=== PATIENT | male | born 1955 | race Two or more races ===

== ENCOUNTER 2021-12-11 07:02 | Day surgery (SDC) | payer OTHER ==
[~2021-12-11] VITALS: Ht 157.5 cm; Wt 63.5 kg
[2021-12-11] MEDS ORDERED: IODIXANOL 320MG/ML 100ML BTL IV ONE (09:06)
[2021-12-11] MEDS ORDERED: LIDOCAINE 2%HCL (LOCAL ANESTH.) INJ 10ml MDV ONE (09:07)
[2021-12-11] MEDS ORDERED: ANGIOMAX 250 MG VIAL IV ONE (09:11)
[2021-12-11] MEDS ORDERED: HEPARIN SODIUM (PORCINE) 5000 UNITS/ML 1ML VIAL ONE (09:11)
[2021-12-11] MEDS ORDERED: fentaNYL CITRATE 100 MCG/2 ML VL ONE (09:12)
[2021-12-11] MEDS ORDERED: VERAPAMIL 2.5MG/ML INJ 2ML VIAL IV ONE (09:12)
[2021-12-11] MEDS ORDERED: MIDAZOLAM HCL 2MG/2ML 2ml VIAL (1mg/ml) ONE (09:12)
[2021-12-11] MEDS ORDERED: SODIUM CHL 0.9% 0 ML ONE (09:12)
== END 2021-12-11 12:58 | disposition home or self-care (01) ==
LOC: CATH 07:02
PROVIDERS: ATTEND Internal Medicine Cardiovascular Disease
DX: R94.39 Abnormal result of other cardiovascular function study (principal); I25.10 Atherosclerotic heart disease of native coronary artery without angina pectoris; Z20.822 Contact with and (suspected) exposure to COVID-19
CPT/HCPCS: 93458; C1769; C1887; C1894; J1644; J2001; J2250; J3010; Q9967; U0003; 99152; 99153

== ENCOUNTER 2022-08-20 09:16 | Emergency (ER) | payer OTHER, MEDICAID ==
[~2022-08-20] VITALS: Ht 154.9 cm; Wt 66.9 kg
[2022-08-20] MEDS ORDERED: MORPHINE SULFATE 4 MG/ML SYR/VIAL IV ONE (10:00)
[2022-08-20] MEDS ORDERED: ONDANSETRON HCL 4 MG/2 ML VIAL IV ONE (10:00)
[2022-08-20] MEDS ORDERED: SODIUM CHLORIDE 0.9% 1,000 ML IVB ONE (10:00)
[2022-08-20] MEDS ORDERED: KETOROLAC TROMETH 30 MG/ML 1ML VIAL IV ONE (10:00)
[2022-08-20 10:11] LABS: Urine Bacteria NONE SEEN /hpf (None Seen); Urine Blood Negative /uL (Negative); Urine Mucus FEW (None Seen); Urine Specific Gravity 1.022 (1.001-1.035); Urine WBC 1 /hpf (0 - 3)
[2022-08-20 10:37] LABS: Basophils # (auto) 0 10 ^3/uL (0-0.2); Eosinophils # (auto) 0.1 10 ^3/uL (0-0.8); Lymphocytes # (auto) 1.5 10 ^3/uL (0.4-5.4); Monocytes # (auto) 0.2 10 ^3/uL (0-1.3); Neutrophils # (auto) 1.3 10 ^3/uL (1.6-8.6); Nucleated Red Blood Cells % 0.2 %
[2022-08-20 10:42] LABS: Basophils % (auto) 0.9 % (0.0-2.0); Eosinophils % (auto) 3.2 % (0.0-7.0); Hematocrit 42.4 % (41.0-53.0); Hemoglobin 14.3 g/dL (13.5-17.5); Mean Corpuscular Hemoglobin 34.6 pg (28.0-32.0); Mean Corpuscular Hgb Conc. 33.8 g/dL (32.0-36.0); Mean Corpuscular Volume 102.5 fL (80.0-100.0); Monocytes % (auto) 7.4 % (0.0-12.0); Neutrophils % (auto) 41.5 % (37.0-80.0); Red Blood Cells 4.13 10^6/uL (4.5-5.90); Red Cell Distribution Width 13.5 % (11.8-14.3); White Blood Cell 3.1 10^3/uL (4.4-10.8)
[2022-08-20 10:52] LABS: Albumin 4.5 g/dL (3.4-5.0); Calcium 9.1 mg/dL (8.5-10.1); Potassium 4.3 mmol/L (3.5-5.1)
[2022-08-20 10:55] LABS: BUN/Creatinine Ratio 10.7; Bilirubin, Total 1.5 mg/dL (0.2-1.0); Total Protein 7.8 g/dL (6.4-8.2)
[2022-08-20] MEDS ORDERED: TRAM-297 PO (13:00)
[2022-08-20 13:22] VITALS: BP 168/84
== END 2022-08-20 13:45 | disposition home or self-care (01) ==
LOC: ER 09:16
DX: R10.9 Unspecified abdominal pain (principal); D72.819 Decreased white blood cell count, unspecified; F12.10 Cannabis abuse, uncomplicated; E78.5 Hyperlipidemia, unspecified; I10 Essential (primary) hypertension; Z87.442 Personal history of urinary calculi
CPT/HCPCS: 36415; 74176; 80053; 81001; 85025; 96361; 96374; 99285; J1885; J7030

== ENCOUNTER 2023-09-18 07:03 | Emergency (ER) | payer OTHER, MEDICAID ==
[~2023-09-18] VITALS: Ht 154.9 cm; Wt 63.8 kg
[~2023-09-18 07:03] MED LIST: TRAM-297 PO
[2023-09-18 08:10] LABS: Eosinophils # (auto) 0.1 10 ^3/uL (0-0.8); Mean Corpuscular Hgb Conc. 33.2 g/dL (32.0-36.0); Monocytes # (auto) 0.2 10 ^3/uL (0-1.3); Red Blood Cells 4.12 10^6/uL (4.5-5.90); Red Cell Distribution Width 13.2 % (11.8-14.3)
[2023-09-18 08:12] LABS: Basophils # (auto) 0 10 ^3/uL (0-0.2); Basophils % (auto) 0.9 % (0.0-2.0); Eosinophils % (auto) 3.6 % (0.0-7.0); Hematocrit 42.3 % (41.0-53.0); Lymphocytes # (auto) 1.5 10 ^3/uL (0.4-5.4); Lymphocytes % (auto) 41.1 % (10.0-50.0); Mean Corpuscular Hemoglobin 34.1 pg (28.0-32.0); Mean Corpuscular Volume 102.8 fL (80.0-100.0); Monocytes % (auto) 5.8 % (0.0-12.0); Neutrophils # (auto) 1.8 10 ^3/uL (1.6-8.6); Neutrophils % (auto) 48.6 % (37.0-80.0); Nucleated Red Blood Cells % 0.2 %; White Blood Cell 3.8 10^3/uL (4.4-10.8)
[2023-09-18 08:22] LABS: Chloride 111 mmol/L (98-107); Potassium 3.8 mmol/L (3.5-5.1); Sodium 142 mmol/L (136-145)
[2023-09-18 08:23] LABS: Anion Gap 4 (5-15); Carbon Dioxide 27 mmol/L (20-30)
[2023-09-18 08:24] LABS: Calcium 9.6 mg/dL (8.5-10.1)
[2023-09-18 08:28] LABS: BUN/Creatinine Ratio 8.4 (10.0-20.0); Blood Urea Nitrogen 8 mg/dL (9-23); Glucose 100 mg/dL (74-106)
[2023-09-18 08:30] LABS: INR 1.05 (0.9-1.15); Partial Thromboplastin Time 30.4 SEC (24.5-34.5)
[2023-09-18] MEDS ORDERED: HYDR25SU21 PR (08:54)
[2023-09-18 09:04] VITALS: BP 173/79; PULSE 59; RESP 16; TEMP 97.7; O2SAT 99
== END 2023-09-18 09:06 | disposition home or self-care (01) ==
LOC: ER 07:03
DX: K92.2 Gastrointestinal hemorrhage, unspecified (principal); K64.9 Unspecified hemorrhoids; I10 Essential (primary) hypertension; E78.5 Hyperlipidemia, unspecified; F12.10 Cannabis abuse, uncomplicated; Z87.442 Personal history of urinary calculi
CPT/HCPCS: 36415; 74176; 80048; 85025; 85610; 85730

== ENCOUNTER 2025-07-07 11:46 | Inpatient (IN) | payer OTHER, MEDICAID ==
[~2025-07-07] VITALS: Ht 154.9 cm; Wt 77.2 kg
[~2025-07-07 11:46] MED LIST changes: +HYDR25SU21 PR
--- NOTE | 2025-07-07 11:57 | ED.PDOC ---
HPI Comments 69 y.o male with PMHx of HTN and HLD, presents to the ED via EMS for a chief complaint of chest pain that started this morning. Patient initially reported a 3 day history of fever, chills, SOB and cough followed by new onset chest pain which prompt him to visit [facility] urgent care today. Patient tested positive for Covid at the urgent care and was transferred to the ED given 3 elevated troponin counts. Patient received 3 NTG from EMS. No nausea, vomiting, diarrhea reported. Time Seen by MD: 11:40 Primary Care Provider: SEAN Reviewed Notes: Nurses Notes, Loss Prevention Auditor Notes, Medications, Allergies Allergies: Coded Allergies: NO KNOWN ALLERGIES (Unverified , 12/06/21) Home Meds Active Scripts Hydrocortisone Acetate (Anusol-Hc) 25 Mg Sup, 1 SUPP ND BID, #14 SUPP Prov:AIDAN GARCÍA MD 09/18/23 Tramadol Hcl (Ultram) 50 Mg Tab, 1 TAB PO Q6HR, #30 TAB Prov:AIDAN GARCÍA MD 08/20/22 Information Source: Patient, Emergency Med Personnel Mode of Arrival: EMS Severity: Moderate Timing: Hours Duration: Since onset Prehospital treatment: 12 Lead EKG, In Service Educator, NTG Location: Substernal Radiation: No Radiation Quality: Sharp Onset: At Rest Cardiac Risk Factors: Hyperlipidemia, HTN PE Risk Factors: None History of: None Associated Signs and Symptoms: SOB Past Medical History PAST MEDICAL HISTORY: High Lipids, HTN, Kidney Stones Surgical History: Appendectomy Family History Family History: Reviewed,noncontributory to illness Social History Smoker: Non-Smoker Alcohol: Occasionally Drugs: Marijuana Lives In: Home Constitutional: reports: chills, fever; denies: diaphoresis, fatigue, malaise, sweats, weakness, others EENTM: denies: blurred vision, double vision, ear bleeding, ear discharge, ear drainage, ear pain, ear ringing, eye pain, eye redness, hearing loss, mouth pain, mouth swelling, nasal discharge, nose bleeding, nose congestion, nose pain, photophobia, tearing, throat pain, throat swelling, voice changes, others Respiratory: reports: cough, SOB at rest, shortness of breath, SOB with excertion; denies: hemoptysis, orthopnea, stridor, wheezing, others Cardiovascular: reports: chest pain; denies: dizzy spells, diaphoresis, Dyspnea on exertion, edema, irregular heart beat, left arm pain, lightheadedness, palpitations, PND, syncope, others Gastrointestinal: denies: abdomen distended, abdominal pain, blood streaked bowels, constipated, diarrhea, dysphagia, difficulty swallowing, hematemesis, melena, nausea, poor appetite, poor fluid intake, rectal bleeding, rectal pain, vomiting, others Genitourinary: denies: burning, dysuria, flank pain, frequency, hematuria, incontinence, penile discharge, penile sore, pain, testicle pain, testicle swelling, urgency, others Neurological: denies: dizziness, fainting, headache, left sided numbness, left sided weakness, numbness, paresthesia, pre-existing deficit, right sided numbness, right sided weakness, seizure, speech problems, tingling, tremors, weakness, others Musculoskeletal: denies: back pain, gout, joint pain, joint swelling, muscle pain, muscle stiffness, neck pain, others Integumetry: denies: bruises, change in color, change in hair/nails, dryness, laceration, lesions, lumps, rash, wounds, others Allergic/Immunocompromised: denies: Difficulty Healing, Frequent Infections, Hives, Itching, others Hematologic/Lymphatic: denies: anemia, blood clots, easy bleeding, easy bruising, swollen glands, others Endocrine: denies: excessive hunger, excessive sweating, excessive thirst, excessive urination, flushing, intolerance to cold, intolerance to heat, unexplained weight gain, unexplained weight loss, others Psychiatric: denies: anxiety, bipolar disorder, depression, hopeless, panic disorder, schizophrenia, sleepless, suicidal, others All Other Systems: Reviewed and Negative Physical Exam General Appearance: Moderate Distress HEENT: Normal ENT Inspection, Pharynx Normal, TMs Normal Neck: Full Range of Motion, Non-Tender, Normal, Normal Inspection Respiratory: Other (Coarse breath sounds) Cardiovascular: Bradycardia Breast Exam: Deferred Gastrointestinal: No Organomegaly, Non Tender, No Pulsatile Mass, Normal Bowel Sounds, Soft Genitalia: Deferred Pelvic: Deferred Rectal: Deferred Extremities: No calf tenderness, Normal capillary refill, Normal inspection, Normal range of motion, Non-tender, No pedal edema Musculoskeletal : Apperance: Normal Neurologic: Alert, meter attendant II-XII nml as Tested, No Motor Deficits, Normal Affect, Normal Mood, No Sensory Deficits Cerebellar Function: NOT DONE Reflexes: NOT DONE Skin: Dry, Normal Color, Warm Peripheral Pulses: 3+ Radial (R), 3+ Radial (L) Lymphatic: No Adenopathy Was a procedure done? Was a procedure done?: No CP Differential Dx Differential Diagnosis: A-fib, A-Flutter, Angina, Anxiety / Panic Attack, Atrial Dysrhythmia, Electrolyte Disorder, Pulmonary Embolus Differential Diagnosis: Angina, Chest Wall Pain, Cholelithiasis, Costochondritis, Pericarditis, Pneumonia, Pulmonary Embolus X-Ray, Labs, Meds, VS Vital Signs Date Time Temp Pulse Resp B/P (MAP) Pulse Ox O2 Delivery O2 Flow Rate FiO2 07/07/25 14:00 46 20 145/49 (81) 97 07/07/25 13:02 44 07/07/25 13:00 49 16 153/66 (95) 98 07/07/25 12:17 98.2 45 13 140/75 (96) 99 98.2 07/07/25 12:17 45 13 99 Room Air* 0 21 07/07/25 11:46 98.2 52 18 167/87 97 98.2 07/07/25 11:46 51 Lab Test 07/07/25 14:00 07/07/25 13:00 07/07/25 12:51 07/07/25 12:07 Range/Units Urine Color Light-yellow Yellow Urine Clarity Clear Clear Urine pH 5.5 5.0-9.0 Urine Specific [place] 1.024 1.001-1.035 Urine Protein Negative Negative Urine Ketones Negative Negative Urine Blood Negative Negative /uL Urine Nitrite Negative Negative Urine Bilirubin Negative Negative Urine Urobilinogen Normal Negative mg/dL Urine Leukocyte Esterase Negative Negative /uL Urine RBC 1 0 - 3 /hpf Urine Microscopic WBC 1 0-3 /HPF Urine Squamous Epithelial Cells Few <5 /hpf Urine Bacteria None seen None Seen /hpf Urine Mucus Few None Seen Urine Glucose Normal Normal mg/dL Troponin I High Sensitivity 194 *H 205 *H </=54 ng/L Influenza Type A Antigen Negative Negative Influenza Type B Antigen Negative Negative SARS-CoV-2 Antigen (Rapid) Negative NEGATIVE White Blood Count 4.6 4.4-10.8 10^3/uL Red Blood Count 3.99 L 4.5-5.90 10^6/uL Hemoglobin 13.8 13.5-17.5 g/dL Hematocrit 41.0 41.0-53.0 % Mean Corpuscular Volume 102.9 H 80.0-100.0 fL Mean Corpuscular Hemoglobin 34.5 H 28.0-32.0 pg Mean Corpuscular Hemoglobin Concent 33.5 32.0-36.0 g/dL Red Cell Distribution Width 13.7 11.8-14.3 % Platelet Count 205 140-450 10^3/uL Mean Platelet Volume 7.5 6.9-10.8 fL Neutrophils (%) (Auto) 37.8 37.0-80.0 % Lymphocytes (%) (Auto) 51.1 H 10.0-50.0 % Monocytes (%) (Auto) 7.4 0.0-12.0 % Eosinophils (%) (Auto) 3.0 0.0-7.0 % Basophils (%) (Auto) 0.7 0.0-2.0 % Neutrophils # (Auto) 1.7 1.6-8.6 10 ^3/uL Lymphocytes # (Auto) 2.3 0.4-5.4 10 ^3/uL Monocytes # (Auto) 0.3 0-1.3 10 ^3/uL Eosinophils # (Auto) 0.1 0-0.8 10 ^3/uL Basophils # (Auto) 0 0-0.2 10 ^3/uL Nucleated Red Blood Cells 0.2 % Sodium Level 144 136-145 mmol/L Potassium Level 4.6 3.5-5.1 mmol/L Chloride Level 110 H 98-107 mmol/L Carbon Dioxide Level 28 20-31 mmol/L Anion Gap 6 5-15 Blood Urea Nitrogen 11 9-23 mg/dL Creatinine 0.92 0.700-1.30 mg/dL Glomerular Filtration Rate Calc 89 >90 mL/min BUN/Creatinine Ratio 12.0 10.0-20.0 Serum Glucose 98 74-106 mg/dL Calcium Level 9.3 8.7-10.4 mg/dL Current Medications Medications (Trade) Dose Ordered Sig/Debra Route Start Time Stop Time Status Last Admin Sodium Chloride 1,000 ml @ 60 mls/hr [id number] IV 07/07/25 14:15 07/07/25 15:15 Patient alert. Came in because of cough. Vitals stable. Answering questions. Came from urgent care. Was ruled in for COVID. Blood pressure elevated. Troponin elevated. Waiting for [facility] physician. Explained to the patient. Continue monitoring. Time of 1ST Reevaluation: 11:53 Reevaluation 1ST: Unchanged Patient Education/Counseling: Diagnosis, Treatment, Prognosis Family Education/Counseling: No Family Present SEPSIS Sepsis Screen Physician Orders Chest Portable (07/07/25 12:20) Electrocardigram (07/07/25 12:30) Electrocardigram (07/07/25 13:30) Electrocardigram (07/07/25 15:30) Vital Signs Date Time Temp Pulse Resp B/P (MAP) Pulse Ox O2 Delivery O2 Flow Rate FiO2 07/07/25 14:00 46 20 145/49 (81) 97 07/07/25 13:02 44 07/07/25 13:00 49 16 153/66 (95) 98 07/07/25 12:17 98.2 45 13 140/75 (96) 99 98.2 07/07/25 12:17 45 13 99 Room Air* 0 21 07/07/25 11:46 98.2 52 18 167/87 97 98.2 07/07/25 11:46 51 Laboratory Tests Test 07/07/25 12:07 White Blood Count 4.6 10^3/uL (4.4-10.8) Medications Medications Dose Ordered Sig/Debra Route Start Time Stop Time Status Last Admin Dose Admin Sodium Chloride 1,000 ml @ 60 mls/hr [id number] IV 07/07/25 14:15 07/07/25 15:15 Departure 1 Departure Time of Disposition: 12:39 Impression: Primary Impression: Bradycardia Additional Impressions: Pneumonitis Demand ischemia Disposition: 09 ADMITTED INPATIENT Admit to: Med Surg Condition: Guarded Critical Care Note Critical Care Time?: Yes (90 min-critical care time only) Stability Stability form required: No Heart Score Heart Score: Heart Score Response (Comments) Value History Highly Suspicious 2 EKG Normal 0 Age >65 2 Risk Factors >3 or Hx ASHD 2 Troponin >3 x's Normal limit 2 Total 8 I personally scribed for YONAS ALANIS MD ([email or web address]) on 07/07/25 at 11:57. Electronically submitted by Rosalie Mon ([facility]). YONAS ALANIS MD Jul 07, 2025 11:57
[2025-07-07 12:17] VITALS: PULSE 45; RESP 13; O2SAT 99
[2025-07-07 12:30] LABS: Hemoglobin 13.8 g/dL (13.5-17.5); Mean Corpuscular Hemoglobin 34.5 pg (28.0-32.0)
[2025-07-07 12:33] LABS: Hematocrit 41.0 % (41.0-53.0); Mean Corpuscular Volume 102.9 fL (80.0-100.0); Nucleated Red Blood Cells % 0.2 %
[2025-07-07 12:42] LABS: Potassium 4.6 mmol/L (3.5-5.1); Sodium 144 mmol/L (136-145)
[2025-07-07 12:43] LABS: Anion Gap 6 (5-15); Calcium 9.3 mg/dL (8.7-10.4); Carbon Dioxide 28 mmol/L (20-31); Chloride 110 mmol/L (98-107)
[2025-07-07 12:48] LABS: BUN/Creatinine Ratio 12.0 (10.0-20.0); Blood Urea Nitrogen 11 mg/dL (9-23); Glucose 98 mg/dL (74-106)
--- NOTE | 2025-07-07 13:01 | DVH ---
CHEST RADIOGRAPH INDICATION: sob TECHNIQUE: XY CHEST PORTABLE Comparison: None FINDINGS: The cardiac silhouette is unremarkable. The lungs demonstrate no pulmonary airspace consolidation. The pulmonary vasculature is unremarkable. There is no pleural effusion. There is no pneumothorax. IMPRESSION: No pulmonary airspace consolidation.
[2025-07-07] MEDS ORDERED: NITROGLYCERIN 0.4 MG SL TAB SL PRN (14:15)
[2025-07-07] MEDS ORDERED: ACETAMINOPHEN 325 MG TAB PO PRN (14:15)
[2025-07-07 14:21] LABS: COVID19 ANTIGEN SOFIA FIA NEGATIVE (NEGATIVE)
[2025-07-07 14:28] LABS: Urine Protein, UAD Negative (Negative)
[2025-07-07] MEDS ORDERED: MORPHINE SULFATE 4 MG/ML SYR/VIAL IV PRN (14:30)
[2025-07-07] MEDS ORDERED: hydrALAZINE HCL 20 MG/ML VL IV PRN (14:30)
[2025-07-07] MEDS ORDERED: HEPARIN SODIUM (PORCINE) 5000 UNITS/ML 1ML VIAL IV ONE (14:30)
[2025-07-07] MEDS: SODIUM CHLORIDE 0.9% 1,000 ML IV SCH (15:15)
[2025-07-07] MEDS: ATORVASTATIN 20 MG TAB PO ONE (15:15)
[2025-07-07 15:17] LABS: Hemoglobin 13.5 g/dL (13.5-17.5); Mean Corpuscular Hemoglobin 34.3 pg (28.0-32.0)
[2025-07-07 15:18] LABS: Hematocrit 40.4 % (41.0-53.0); Mean Corpuscular Volume 102.9 fL (80.0-100.0); Nucleated Red Blood Cells % 0.2 %
[2025-07-07 15:38] LABS: INR 0.99 (0.9-1.15); Partial Thromboplastin Time 28.2 SEC (24.5-34.5); Prothrombin Time 10.5 sec (9.3-11.8)
[2025-07-07] MEDS: HEPARIN DRIP/D5W 100UNITS/ML 250 ML IV SCH (15:42)
[2025-07-07 17:35] VITALS: BP 154/86; PULSE 43; PULSE 44; RESP 16; TEMP 98; O2SAT 98
--- NOTE | 2025-07-07 17:39 | DVHINCON2 ---
Date Seen: Jul 07, [address] Dietrich Reason for Consultation NSTEMI History of Present Illness Patient is a 69-year-old male presented to the hospital with a chief complaint of chest pain with the last few days. Patient reported started to have chest pain about 3-4 days ago left-sided, sharp, radiating to the left arm with a feeling of cramping up of his hand, brought on at rest, reportedly worsens with the exertion and since the last 3 4 days has been found stent worsens with cough. He also has been having cough with a yellowish expectoration since the last 3-4 days with chills, with the shortness of breath worsened with exertion, Functional Class II, denied orthopnea or PND. Patient has significant medical history of hypertension, hyperlipidemia,? Atrial fibrillation Since he is on Eliquis and metoprolol succinate at home. While in the EMS patient was given nitroglycerin which did not help with the pain. On arrival to the ER patient was noted to be bradycardic with the 40s, BP slightly elevated up to 167/87. Chest pain subsided while in the hospital. Twelve lead ECG showed sinus bradycardia without any acute ST or T-wave changes, troponin levels flat trended [id number] Past medical history: Hypertension, hyperlipidemia, asthma,? Atrial fibrillation Since he is on Eliquis and metoprolol succinate at home Past surgical history: Denies Social history: Patient lives at home, denies any smoking, alcohol, drug use Home medications: Eliquis 2.5 b.i.d., aspirin 81 mg daily, lisinopril 5 mg daily, atorvastatin 40 mg, metoprolol succinate 25 mg, amitriptyline 10 mg t.i.d., albuterol inhaler, gabapentin Allergies: Coded Allergies: NO KNOWN ALLERGIES (Unverified , 12/06/21) Home Meds Active Scripts Hydrocortisone Acetate (Anusol-Hc) 25 Mg Sup, 1 SUPP ID BID, #14 SUPP Prov:AIDAN GARCÍA MD 09/18/23 Tramadol Hcl (Ultram) 50 Mg Tab, 1 TAB PO Q6HR, #30 TAB Prov:AIDAN GARCÍA MD 08/20/22 Current Medications Current Medications Medications (Trade) Dose Ordered Sig/Debra Route PRN Reason Start Time Stop Time Status Last Admin Sodium Chloride 1,000 ml @ 60 mls/hr [id number] IV 07/07/25 14:15 07/07/25 15:15 Acetaminophen (Tylenol Tablet) 325 mg Q4HP PRN PO MILD PAIN (1-3 PAIN SCALE) 07/07/25 14:15 Acetaminophen/ Hydrocodone Bitart ([place] 5/325MG Tab) 1 tab Q4HP PRN PO MODERATE PAIN (4-6 PAIN SCALE) 07/07/25 14:15 Morphine Sulfate 2 mg Q4HPRN PRN IV SEVERE PAIN (7-10 PAIN SCALE) 07/07/25 14:30 Nitroglycerin (Ntrostat Sublingual) 0.4 mg Q5MINP PRN SL FOR CHEST PAIN 07/07/25 14:15 Morphine Sulfate 2 mg Q30M PRN IV FOR CHEST PAIN 07/07/25 14:30 Heparin Sodium/ Dextrose 250 ml @ 9 mls/hr Q24H IV 07/07/25 14:30 07/07/25 15:42 Azithromycin 250 ml @ 125 mls/hr DAILY IV 07/08/25 10:00 Aspirin (Ecotrin Enteric Coated Tablet) 81 mg DAILY PO 07/08/25 10:00 Hydralazine HCl (Apresoline Injection) 10 mg Q6HP PRN IV SBP>160 07/07/25 14:30 Review of Systems Patient seen and examined at bedside, comfortably sitting in bed without any acute distress Describes chest pain 1/10 on intensity, left-sided No shortness a breath Vital Signs Vital Signs Date Time Temp Pulse Resp B/P (MAP) Pulse Ox O2 Delivery O2 Flow Rate FiO2 07/07/25 14:00 46 20 145/49 (81) 97 07/07/25 12:17 98.2 98.2 07/07/25 12:17 Room Air* 0 21 Physical Exam Skin - Patients skin is warm and dry. HEENT - normocephalic, atraumatic, moist mucous membranes, no scleral icterus, no conjunctival pallor. Neck - full ROM, no LAD, no JVD Pulmonary - B/L clear breath sounds without any wheezing, rales or stridor cardiovascular - regular S1,S2 heard, no added sounds, no murmurs appreciable. peripheral pulses normal radial 2+, pedal 2+. GI - soft, nontender abdomen. no hepatospleenomegaly. Bowel sounds normoactive Neurological - Patient is A/O X 4 . Bilateral upper extremity strength 5/5, bilateral lower extremity strength 5/5, no facial droop, normal speech, no tremor, no sensory deficiets. Labs/Diagnostic Data Labs Test 07/07/25 14:58 07/07/25 14:00 07/07/25 12:51 07/07/25 12:07 Range/Units White Blood Count 3.9 L 4.4-10.8 10^3/uL Red Blood Count 3.93 L 4.5-5.90 10^6/uL Hemoglobin 13.5 13.5-17.5 g/dL Hematocrit 40.4 L 41.0-53.0 % Mean Corpuscular Volume 102.9 H 80.0-100.0 fL Mean Corpuscular Hemoglobin 34.3 H 28.0-32.0 pg Mean Corpuscular Hemoglobin Concent 33.3 32.0-36.0 g/dL Red Cell Distribution Width 13.7 11.8-14.3 % Platelet Count 197 140-450 10^3/uL Mean Platelet Volume 7.3 6.9-10.8 fL Neutrophils (%) (Auto) 44.2 37.0-80.0 % Lymphocytes (%) (Auto) 44.7 10.0-50.0 % Monocytes (%) (Auto) 7.3 0.0-12.0 % Eosinophils (%) (Auto) 2.9 0.0-7.0 % Basophils (%) (Auto) 0.9 0.0-2.0 % Neutrophils # (Auto) 1.7 1.6-8.6 10 ^3/uL Lymphocytes # (Auto) 1.8 0.4-5.4 10 ^3/uL Monocytes # (Auto) 0.3 0-1.3 10 ^3/uL Eosinophils # (Auto) 0.1 0-0.8 10 ^3/uL Basophils # (Auto) 0 0-0.2 10 ^3/uL Nucleated Red Blood Cells 0.2 % Prothrombin Time 10.5 9.3-11.8 sec Prothrombin Time INR 0.99 0.9-1.15 Activated Partial Thromboplast Time 28.2 24.5-34.5 SEC Troponin I High Sensitivity 193 *H </=54 ng/L Urine Color Light-yellow Yellow Urine Clarity Clear Clear Urine pH 5.5 5.0-9.0 Urine Specific [place] 1.024 1.001-1.035 Urine Protein Negative Negative Urine Ketones Negative Negative Urine Blood Negative Negative /uL Urine Nitrite Negative Negative Urine Bilirubin Negative Negative Urine Urobilinogen Normal Negative mg/dL Urine Leukocyte Esterase Negative Negative /uL Urine RBC 1 0 - 3 /hpf Urine Microscopic WBC 1 0-3 /HPF Urine Squamous Epithelial Cells Few <5 /hpf Urine Bacteria None seen None Seen /hpf Urine Mucus Few None Seen Urine Glucose Normal Normal mg/dL Influenza Type A Antigen Negative Negative Influenza Type B Antigen Negative Negative SARS-CoV-2 Antigen (Rapid) Negative NEGATIVE Sodium Level 144 136-145 mmol/L Potassium Level 4.6 3.5-5.1 mmol/L Chloride Level 110 H 98-107 mmol/L Carbon Dioxide Level 28 20-31 mmol/L Anion Gap 6 5-15 Blood Urea Nitrogen 11 9-23 mg/dL Creatinine 0.92 0.700-1.30 mg/dL Glomerular Filtration Rate Calc 89 >90 mL/min BUN/Creatinine Ratio 12.0 10.0-20.0 Serum Glucose 98 74-106 mg/dL Calcium Level 9.3 8.7-10.4 mg/dL Assessment Acute chest pain, NSTEMI likely type 2 Sinus bradycardia, symptomatic Hypertension ? Atrial fibrillation on Eliquis Plan/Recommendation - continue heparin drip, single antiplatelet therapy , high-dose statin - keep potassium over 4 and magnesium above 2 - tele monitor for bradycardia - avoid beta blockers - as per Dr. Hicks, patient to be scheduled for left heart catheterization on Thursday with Dr. Reagan, patient's primary senior it architect Goals of care discussed with the patient Plan discussed with Dr. Hicks Plan discussed with: Patient, Other (RN) NYHA Physical activity limitations: Class2(Slight)fatigue,sob Date of Service: Jul 07, 2025 Billing Provider: MASSIEL HICKS MD Cardiology Common Codes: 22028-OTXXTTO INP/OBS CARE (High) OLAF NUNEZ RESIDENT Jul 07, 2025 17:39
[2025-07-07 17:40] VITALS: BP 154/86; PULSE 49; RESP 17; TEMP 98.1; O2SAT 96
--- NOTE | 2025-07-07 19:19 | DVHSR ---
APPROVED REPORT EXAM: Two-dimensional and M-mode echocardiogram with Doppler and color Doppler. Blood Pressure: 140/75 mmHg INDICATION NSTEMI RISK FACTORS Height: 5'1, Weight: 169 DIMENSIONS LVDd 4.3 (3.8-5.7cm) LA (2D) 3.3 (1.9-4.0cm) Aortic Root 3.1 (2.0-3.7cm) LVDs 2.7 (2.5-4.0cm) LA (MM) (1.9-4.0cm) Aortic Cusp Exc 1.8 (1.5-2.0cm) EF (%) 60.0 (55-70%) Rt. Atrium 3.9 (1.9-4.0cm) Asc. Aorta 3.5 cm IVSd 0.8 (0.7-1.1cm) RV (D) 5.5 (1.8-2.4cm) PWd 0.9 (0.7-1.1cm) Mitral Valve Mitral Mitral Stenosis E wave 0.54m/s MV Mean GR. mmHg A wave 0.71m/s MV Peak GR. 56mmHg E/A ratio 0.8 2D MVA cm2 DECEL Time 287ms PRESS 1/2 Time ms Aortic Valve Aortic Valve Aortic Stenosis V1 0.78m/s AO Mean GR. 4mmHg V2 1.27m/s AO Peak GR. 6mmHg LVOT Diameter 2.2 (1.8-2.4cm) Doppler SUKHDEEP 2.33cm2 Pulmonic Valve V2 0.87m/s Tricuspid Valve TR Velocity 2.29m/s RVSP 24mmHg Other Information Quality : Rhythm : Bradycardia Conclusion NORMAL LV EF AND IS 65% NORMAL VALVES NORMAL RV FUNCTION NO EFFUSION
--- NOTE | 2025-07-07 19:25 | ECG ---
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
--- NOTE | 2025-07-07 19:26 | ECG ---
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
[2025-07-07 20:00] VITALS: PULSE 47
--- NOTE | 2025-07-07 20:53 | DVHINCON2 ---
Date Seen: Jul 07, [address] Dietrich Reason for Consultation NSTEMI History of Present Illness This is a 69-year-old male with a PMH of Hypertension, hyperlipidemia, asthma,? Atrial fibrillation since he is on Eliquis and metoprolol succinate at home who presented to the ED with a complaint of chest pain with the last few days. Patient reported started to have chest pain about 3-4 days ago left-sided, sh lee ann, radiating to the left arm with a feeling of cramping up of his hand, brought on at rest, reportedly worsens with the exertion and since the last 3 4 days has been found stent worsens with cough. He also has been having cough with a yellowish expectoration since the last 3-4 days with chills, with the shortness of breath worsened with exertion, Functional Class II, denied ortho pnea or PND. While in the EMS patient was given Nitroglycerin which did not help with the pain. On arrival to the ED the patient was noted to be bradycardic with the 40s, BP slightly elevated up to 167/87. Chest pain subsided while in the hospital. Twelve lead ECG showed sinus bradycardia without any acute ST or T-wave changes, troponin levels flat trended [id number]. Patient was admitted to the hospital. I am asked to consult on this patient. Past Medical History Hypertension, hyperlipidemia, asthma,? Atrial fibrillation Since he is on Eliquis and metoprolol succinate at home Past Surgical History Denies Allergies: Coded Allergies: NO KNOWN ALLERGIES (Unverified , 12/06/21) Home Meds Active Scripts Hydrocortisone Acetate (Anusol-Hc) 25 Mg Sup, 1 SUPP [place] BID, #14 SUPP Prov:AIDAN GARCÍA MD 09/18/23 Tramadol Hcl (Ultram) 50 Mg Tab, 1 TAB PO Q6HR, #30 TAB Prov:AIDAN GARCÍA MD 08/20/22 Current Medications Current Medications Medications (Trade) Dose Ordered Sig/Debra Route PRN Reason Start Time Stop Time Status Last Admin Sodium Chloride 1,000 ml @ 60 mls/hr [id number] IV 07/07/25 14:15 07/07/25 15:15 Acetaminophen (Tylenol Tablet) 325 mg Q4HP PRN PO MILD PAIN (1-3 PAIN SCALE) 07/07/25 14:15 Acetaminophen/ Hydrocodone Bitart (Keno 5/325MG Tab) 1 tab Q4HP PRN PO MODERATE PAIN (4-6 PAIN SCALE) 07/07/25 14:15 Morphine Sulfate 2 mg Q4HPRN PRN IV SEVERE PAIN (7-10 PAIN SCALE) 07/07/25 14:30 Nitroglycerin (Ntrostat Sublingual) 0.4 mg Q5MINP PRN SL FOR CHEST PAIN 07/07/25 14:15 Morphine Sulfate 2 mg Q30M PRN IV FOR CHEST PAIN 07/07/25 14:30 Heparin Sodium/ Dextrose 250 ml @ 9 mls/hr Q24H IV 07/07/25 14:30 07/07/25 15:42 Azithromycin 250 ml @ 125 mls/hr DAILY IV 07/08/25 10:00 Aspirin (Ecotrin Enteric Coated Tablet) 81 mg DAILY PO 07/08/25 10:00 Hydralazine HCl (Apresoline Injection) 10 mg Q6HP PRN IV SBP>160 07/07/25 14:30 Atorvastatin Calcium (Lipitor) 40 mg HS PO 07/08/25 22:00 Lisinopril (Zestril Tablet) 5 mg DAILY PO 07/08/25 10:00 Review of Systems Constitutional: reports: chills, fever; denies: diaphoresis, fatigue, malaise, sweats, weakness, others EENTM: denies: blurred vision, double vision, ear bleeding, ear discharge, ear drainage, ear pain, ear ringing, eye pain, eye redness, hearing loss, mouth pain, mouth swelling, nasal discharge, nose bleeding, nose congestion, nose pain, photophobia, tearing, throat pain, throat swelling, voice changes, others Respiratory: reports: cough, SOB at rest, shortness of breath, SOB with excertion; denies: hemoptysis, orthopnea, stridor, wheezing, others Cardiovascular: reports: chest pain; denies: dizzy spells, diaphoresis, Dyspnea on exertion, edema, irregular heart beat, left arm pain, lightheadedness, palpitations, PND, syncope, others Gastrointestinal: denies: abdomen distended, abdominal pain, blood streaked bowels, constipated, diarrhea, dysphagia, difficulty swallowing, hematemesis, melena, nausea, poor appetite, poor fluid intake, rectal bleeding, rectal pain, vomiting, others Genitourinary: denies: burning, dysuria, flank pain, frequency, hematuria, incontinence, penile discharge, penile sore, pain, testicle pain, testicle swelling, urgency, others Neurological: denies: dizziness, fainting, headache, left sided numbness, left sided weakness, numbness, paresthesia, pre-existing deficit, right sided numbness, right sided weakness, seizure, speech problems, tingling, tremors, weakness, others Musculoskeletal: denies: back pain, gout, joint pain, joint swelling, muscle pain, muscle stiffness, neck pain, others Integumetry: denies: bruises, change in color, change in hair/nails, dryness, laceration, lesions, lumps, rash, wounds, others Allergic/Immunocompromised: denies: Difficulty Healing, Frequent Infections, Hi ves, Itching, others Hematologic/Lymphatic: denies: anemia, blood clots, easy bleeding, easy bruising, swollen glands, others Endocrine: denies: excessive hunger, excessive sweating, excessive thirst, excessive urination, flushing, intolerance to cold, intolerance to heat, unexplained weight gain, unexplained weight loss, others Psychiatric: denies: anxiety, bipolar disorder, depression, hopeless, panic disorder, schizophrenia, sleepless, suicidal, others All Other Systems: Reviewed and Negative Vital Signs Vital Signs Date Time Temp Pulse Resp B/P (MAP) Pulse Ox O2 Delivery O2 Flow Rate FiO2 07/07/25 17:40 98.1 49 17 154/86 (108) 96 98.1 07/07/25 12:17 Room Air* 0 21 Physical Exam GENERAL: Alert and oriented x 3. No acute distress. EYES: PERRL, EOMI. Anicteric. HENT: Moist mucous membranes. LUNGS: Clear to auscultation bilaterally. CARDIOVASCULAR: Regular rate and rhythm. ABDOMEN: Soft, nontender and nondistended. EXTREMITIES: No edema. NEUROLOGIC: No focal neurological deficits. SKIN: Warm, dry. Labs/Diagnostic Data Labs Test 07/07/25 14:58 07/07/25 14:00 07/07/25 12:51 07/07/25 12:07 Range/Units White Blood Count 3.9 L 4.4-10.8 10^3/uL Red Blood Count 3.93 L 4.5-5.90 10^6/uL Hemoglobin 13.5 13.5-17.5 g/dL Hematocrit 40.4 L 41.0-53.0 % Mean Corpuscular Volume 102.9 H 80.0-100.0 fL Mean Corpuscular Hemoglobin 34.3 H 28.0-32.0 pg Mean Corpuscular Hemoglobin Concent 33.3 32.0-36.0 g/dL Red Cell Distribution Width 13.7 11.8-14.3 % Platelet Count 197 140-450 10^3/uL Mean Platelet Volume 7.3 6.9-10.8 fL Neutrophils (%) (Auto) 44.2 37.0-80.0 % Lymphocytes (%) (Auto) 44.7 10.0-50.0 % Monocytes (%) (Auto) 7.3 0.0-12.0 % Eosinophils (%) (Auto) 2.9 0.0-7.0 % Basophils (%) (Auto) 0.9 0.0-2.0 % Neutrophils # (Auto) 1.7 1.6-8.6 10 ^3/uL Lymphocytes # (Auto) 1.8 0.4-5.4 10 ^3/uL Monocytes # (Auto) 0.3 0-1.3 10 ^3/uL Eosinophils # (Auto) 0.1 0-0.8 10 ^3/uL Basophils # (Auto) 0 0-0.2 10 ^3/uL Nucleated Red Blood Cells 0.2 % Prothrombin Time 10.5 9.3-11.8 sec Prothrombin Time INR 0.99 0.9-1.15 Activated Partial Thromboplast Time 28.2 24.5-34.5 SEC Troponin I High Sensitivity 193 *H </=54 ng/L Urine Color Light-yellow Yellow Urine Clarity Clear Clear Urine pH 5.5 5.0-9.0 Urine Specific [place] 1.024 1.001-1.035 Urine Protein Negative Negative Urine Ketones Negative Negative Urine Blood Negative Negative /uL Urine Nitrite Negative Negative Urine Bilirubin Negative Negative Urine Urobilinogen Normal Negative mg/dL Urine Leukocyte Esterase Negative Negative /uL Urine RBC 1 0 - 3 /hpf Urine Microscopic WBC 1 0-3 /HPF Urine Squamous Epithelial Cells Few <5 /hpf Urine Bacteria None seen None Seen /hpf Urine Mucus Few None Seen Urine Glucose Normal Normal mg/dL Influenza Type A Antigen Negative Negative Influenza Type B Antigen Negative Negative SARS-CoV-2 Antigen (Rapid) Negative NEGATIVE Sodium Level 144 136-145 mmol/L Potassium Level 4.6 3.5-5.1 mmol/L Chloride Level 110 H 98-107 mmol/L Carbon Dioxide Level 28 20-31 mmol/L Anion Gap 6 5-15 Blood Urea Nitrogen 11 9-23 mg/dL Creatinine 0.92 0.700-1.30 mg/dL Glomerular Filtration Rate Calc 89 >90 mL/min BUN/Creatinine Ratio 12.0 10.0-20.0 Serum Glucose 98 74-106 mg/dL Calcium Level 9.3 8.7-10.4 mg/dL Assessment Acute chest pain, NSTEMI likely type 2. Sinus bradycardia, symptomatic. Hypertension. ? Atrial fibrillation on Eliquis. Plan/Recommendation I agree with your ongoing assessment and care of plan. Patient has been seen by An Quiñones Resident on my behalf, we have discussed the plan with the patient Continue heparin drip, single antiplatelet therapy , high-dose statin. Keep potassium over 4 and magnesium above 2. Tele monitor for bradycardia. Avoid beta blockers. I have advised that the patient be scheduled for left heart catheterization on Thursday with Dr. Reagan, patient's primary larriman. Additional plan as per the hospital course. Plan discussed with: Patient NYHA Physical activity limitations: Class2(Slight)fatigue,sob Date of Service: Jul 07, 2025 Billing Provider: MASSIEL JESUS MD Cardiology Common Codes: 24950-[id number] INP/OBS CARE (High) Cardiology Consultation Codes: 32963-[id number] CONSULT <45MIN MASSIEL JESUS MD Jul 07, 2025 18:14
[2025-07-07 21:00] VITALS: BP 131/81; PULSE 50; RESP 17; TEMP 97.5; O2SAT 100
[2025-07-07] MEDS: HYDROcodone-ACET 5/325MG TAB PO PRN (21:27)
[2025-07-07 22:02] LABS: INR 1.03 (0.9-1.15); Partial Thromboplastin Time 55.0 SEC (24.5-34.5); Prothrombin Time 10.9 sec (9.3-11.8)
--- NOTE | 2025-07-07 22:30 | CONS ---
Pharmacy Clinical Information: HEPARIN PER ACS PROTOCOL: APTT result of 55.0 received from draw on 07/07 @2111. No change per PRx protocol. Continue rate at 900 units per hour (9ml/hr). Orders read back and confirmed with SALLY Castro @6840. Next APTT scheduled for 0300 on 07/08. ALBER RICHARDSON PHARMACIST Jul 07, 2025 22:30
[2025-07-08] VITALS (7 sets, daily range): BP systolic 121–163; BP diastolic 73–97; PULSE 39–75; RESP 17; TEMP 97.7–99; O2SAT 95–99
[2025-07-08 03:47] LABS: Hematocrit 38.5 % (41.0-53.0); Hemoglobin 13.0 g/dL (13.5-17.5); Mean Corpuscular Hemoglobin 35.1 pg (28.0-32.0); Mean Corpuscular Volume 103.9 fL (80.0-100.0); Nucleated Red Blood Cells % 0.4 %
[2025-07-08 04:15] LABS: INR 1.05 (0.9-1.15); Prothrombin Time 11.1 sec (9.3-11.8)
[2025-07-08 04:29] LABS: Partial Thromboplastin Time 84.7 SEC (24.5-34.5)
[2025-07-08 04:33] LABS: Alanine Aminotransferase 18 U/L (7-40); Albumin 4.0 g/dL (3.2-4.8); Alkaline Phosphatase 73 U/L (46-116); Anion Gap 11 (5-15); BUN/Creatinine Ratio 25.9 (10.0-20.0); Blood Urea Nitrogen 21 mg/dL (9-23); Carbon Dioxide 21 mmol/L (20-31); Glucose 100 mg/dL (74-106); Total Protein 6.3 g/dL (5.7-8.2)
[2025-07-08 04:34] LABS: Bilirubin, Total 1.8 mg/dL (0.2-1.0); Calcium 8.7 mg/dL (8.7-10.4); Chloride 113 mmol/L (98-107); Potassium 4.2 mmol/L (3.5-5.1); Sodium 145 mmol/L (136-145)
[2025-07-08] MEDS: HEPARIN DRIP/D5W 100UNITS/ML 250 ML IV SCH ×3 (04:54→19:30)
[2025-07-08] MEDS: ASPirin-EC 81 mg tab PO SCH (10:02)
[2025-07-08] MEDS: AZITHROMYCIN 500MG/250ML 250 ML IV SCH (10:02)
[2025-07-08] MEDS: LISINOPRIL 5 MG TAB PO SCH (10:03)
--- NOTE | 2025-07-08 11:40 | DVHHP2 ---
Admitting Diagnosis: NSTEMI History of Present Illness HPI Patient is 69-year-old male with past medical history of atrial fibrillation on Eliquis, hypertension, hyperlipidemia who presents with complaints of chest pain. Patient initially presented to the urgent care with complaints of left- sided chest pain rating to his left arm. Troponin was initially elevated. Patient arrived to the ER with troponin noted to be 205 and downtrended to 194 and then 193. Patient was admitted for further cardiac evaluation. He sees Dr. Reagan outpatient. Home Meds Active Scripts Hydrocortisone Acetate (Anusol-Hc) 25 Mg Sup, 1 SUPP [place] BID, #14 SUPP Prov:AIDAN GARCÍA MD 09/18/23 Tramadol Hcl (Ultram) 50 Mg Tab, 1 TAB PO Q6HR, #30 TAB Prov:AIDAN GARCÍA MD 08/20/22 Past Medical History Cardiac: AFIB, HTN Review of Systems Cardiovascular: Chest Pain H&P Exam Vital Signs Vital Signs Date Time Temp Pulse Resp B/P (MAP) Pulse Ox O2 Delivery O2 Flow Rate FiO2 07/08/25 10:03 144/93 07/08/25 09:01 97.9 54 17 99 97.9 07/07/25 17:35 Room Air* 0 21 General Appeara: Well developed Pulmonary/Respiratory: Lungs clear Cardiovascular/Chest: Regular rate SEPSIS Sepsis Screen Date sepsis recognized/suspect: Jul 07, 2025 Time Sepsis recognized/suspect: 1217 Recent Procedure: No On Antibiotic Therapy: No Respiratory Rate >20: No Heart Rate >90: No Temp<36 C (96.8 F) or >38.3 C: No SBP <90 or MAP <65 mmHG: No New Acute Mental Status Change: No Is the patient on CPAP, BIPAP,: No Physician Orders PTPTT (07/08/25 11:00) Heparin Per Pharmacy Protocol (07/08/25 04:33) Heparin Drip/D5w 100units/Ml (07/08/25 04:45) Vital Signs Date Time Temp Pulse Resp B/P (MAP) Pulse Ox O2 Delivery O2 Flow Rate FiO2 07/08/25 10:03 144/93 07/08/25 09:01 97.9 54 17 144/93 (110) 99 97.9 07/08/25 08:00 39 07/08/25 05:00 97.7 75 17 145/85 (105) 95 97.7 Laboratory Tests Test 07/08/25 03:20 White Blood Count 4.4 10^3/uL (4.4-10.8) Medications Medications Dose Ordered Sig/Debra Route Start Time Stop Time Status Last Admin Dose Admin Aspirin 81 mg DAILY PO 07/08/25 10:00 07/08/25 10:02 81 MG Azithromycin 250 ml @ 125 mls/hr DAILY IV 07/08/25 10:00 07/08/25 10:02 125 MLS/HR Heparin Sodium/ Dextrose 250 ml @ 7 mls/hr Q24H IV 07/08/25 04:45 07/08/25 04:54 7 MLS/HR Lisinopril 5 mg DAILY PO 07/08/25 10:00 07/08/25 10:03 5 MG Labs/Xrays Labs Test 07/08/25 11:04 07/08/25 03:20 07/07/25 14:58 07/07/25 14:00 Range/Units White Blood Count 4.4 4.4-10.8 10^3/uL Red Blood Count 3.70 L 4.5-5.90 10^6/uL Hemoglobin 13.0 L 13.5-17.5 g/dL Hematocrit 38.5 L 41.0-53.0 % Mean Corpuscular Volume 103.9 H 80.0-100.0 fL Mean Corpuscular Hemoglobin 35.1 H 28.0-32.0 pg Mean Corpuscular Hemoglobin Concent 33.8 32.0-36.0 g/dL Red Cell Distribution Width 14.0 11.8-14.3 % Platelet Count 171 140-450 10^3/uL Mean Platelet Volume 7.5 6.9-10.8 fL Neutrophils (%) (Auto) 36.4 L 37.0-80.0 % Lymphocytes (%) (Auto) 52.1 H 10.0-50.0 % Monocytes (%) (Auto) 6.1 0.0-12.0 % Eosinophils (%) (Auto) 4.2 0.0-7.0 % Basophils (%) (Auto) 1.2 0.0-2.0 % Neutrophils # (Auto) 1.6 1.6-8.6 10 ^3/uL Lymphocytes # (Auto) 2.3 0.4-5.4 10 ^3/uL Monocytes # (Auto) 0.3 0-1.3 10 ^3/uL Eosinophils # (Auto) 0.2 0-0.8 10 ^3/uL Basophils # (Auto) 0.1 0-0.2 10 ^3/uL Nucleated Red Blood Cells 0.4 % Sodium Level 145 136-145 mmol/L Potassium Level 4.2 3.5-5.1 mmol/L Chloride Level 113 H 98-107 mmol/L Carbon Dioxide Level 21 20-31 mmol/L Anion Gap 11 5-15 Blood Urea Nitrogen 21 # 9-23 mg/dL Creatinine 0.81 0.700-1.30 mg/dL Glomerular Filtration Rate Calc 95 >90 mL/min BUN/Creatinine Ratio 25.9 H 10.0-20.0 Serum Glucose 100 74-106 mg/dL Calcium Level 8.7 8.7-10.4 mg/dL Total Bilirubin 1.8 H 0.2-1.0 mg/dL Aspartate Amino Transferase (AST) 20 13-40 U/L Alanine Aminotransferase (ALT) 18 7-40 U/L Alkaline Phosphatase 73 46-116 U/L Total Protein 6.3 5.7-8.2 g/dL Albumin 4.0 3.2-4.8 g/dL Troponin I High Sensitivity 193 *H </=54 ng/L Urine Color Light-yellow Yellow Urine Clarity Clear Clear Urine pH 5.5 5.0-9.0 Urine Specific [place] 1.024 1.001-1.035 Urine Protein Negative Negative Urine Ketones Negative Negative Urine Blood Negative Negative /uL Urine Nitrite Negative Negative Urine Bilirubin Negative Negative Urine Urobilinogen Normal Negative mg/dL Urine Leukocyte Esterase Negative Negative /uL Urine RBC 1 0 - 3 /hpf Urine Microscopic WBC 1 0-3 /HPF Urine Squamous Epithelial Cells Few <5 /hpf Urine Bacteria None seen None Seen /hpf Urine Mucus Few None Seen Urine Glucose Normal Normal mg/dL Test 07/07/25 12:51 Range/Units Influenza Type A Antigen Negative Negative Influenza Type B Antigen Negative Negative SARS-CoV-2 Antigen (Rapid) Negative NEGATIVE Assessment/Plan Primary Diagnosis 1. NSTEMI Plan 2. Atrial Fibrillation 3. Hypertension 4. Hyperlipidemia plan: - Cardiology consulted. Plan for left heart cath on 122. - Continue heparin drip - TTE does not show any underlying CHF - Discontinue antibiotics as chest x-ray negative for infectious process -Flu and COVID negative -Lisinopril for HTN -Continue asa, statin -Cardiac diet -Daily CBC and BMP -Full Code Plan discussed with: Patient CON URBINA Jul 08, 2025 11:39
[2025-07-08 12:08] LABS: INR 1.03 (0.9-1.15); Partial Thromboplastin Time 48.0 SEC (24.5-34.5); Prothrombin Time 10.9 sec (9.3-11.8)
--- NOTE | 2025-07-08 12:31 | CONS ---
Pharmacy Clinical Information: HEPARIN DRIP RATE INCREASED FROM 700 UNITS/HR TO 900 UNITS/HR PER APTT OF 48.0 (SUBTHERAPEUTIC) NEXT APTT DRAW SCHEDULED FOR 1800 PER RX PROTOCOL LLUVIA STODDARD PHARMACIST Jul 08, 2025 12:31
[2025-07-08] MEDS: MORPHINE SULFATE 4 MG/ML SYR/VIAL IV PRN (14:45)
--- NOTE | 2025-07-08 18:09 | DVHPN2 ---
Progress Note - Dictate Date Seen: Jul 08, 2025 Medical Necessity Reason Pt with a Central, PICC or Fol: No Subjective Patient was seen and evaluated in follow up. Patient is complaining of intermittent chest pain. Patients HR dropping into the 40s, patient asymptomatic. Patient is on heparin drip. Echocardiogram shows LV EF of 65%. Telemetry reviewed. vital signs Vital Sign Date Time Temp Pulse Resp B/P (MAP) Pulse Ox O2 Delivery O2 Flow Rate FiO2 07/08/25 17:11 98.1 53 17 163/95 (117) 98 98.1 07/08/25 08:00 Room Air* 0 21 Total Intake and Output 07/07/25 07/07/25 07/08/25 15:00 23:00 07:00 Intake Total 129 ml 300 ml Balance 129 ml 300 ml medications Current Medications Medications Dose Ordered Sig/Debra Route Start Time Stop Time Status Last Admin Dose Admin Sodium Chloride 1,000 ml @ 60 mls/hr [id number] IV 07/07/25 14:15 07/08/25 08:00 60 MLS/HR Acetaminophen 325 mg Q4HP PRN PO 07/07/25 14:15 Acetaminophen/ Hydrocodone Bitart 1 tab Q4HP PRN PO 07/07/25 14:15 07/07/25 21:27 1 TAB Morphine Sulfate 2 mg Q4HPRN PRN IV 07/07/25 14:30 07/08/25 14:45 2 MG Nitroglycerin 0.4 mg Q5MINP PRN SL 07/07/25 14:15 Morphine Sulfate 2 mg Q30M PRN IV 07/07/25 14:30 Aspirin 81 mg DAILY PO 07/08/25 10:00 07/08/25 10:02 81 MG Hydralazine HCl 10 mg Q6HP PRN IV 07/07/25 14:30 Atorvastatin Calcium 40 mg HS PO 07/08/25 22:00 Lisinopril 5 mg DAILY PO 07/08/25 10:00 07/08/25 10:03 5 MG Heparin Sodium/ Dextrose 250 ml @ 9 mls/hr Q24H IV 07/08/25 12:30 07/08/25 17:57 9 MLS/HR objective GENERAL: Alert and oriented x 3. No acute distress. EYES: PERRL, EOMI. Anicteric. HENT: Moist mucous membranes. LUNGS: Clear to auscultation bilaterally. CARDIOVASCULAR: Regular rate and rhythm. ABDOMEN: Soft, nontender and nondistended. EXTREMITIES: No edema. NEUROLOGIC: No focal neurological deficits. SKIN: Warm, dry. laboratory and microbiology Laboratory Tests 07/08/25 03:20 Test 07/08/25 03:20 Range/Units Serum Glucose 100 74-106 mg/dL Problem List Acute chest pain, NSTEMI likely type 2. Sinus bradycardia, symptomatic. Hypertension. ? Atrial fibrillation on Eliquis. Assessment/Plan Continued all current supportive medical care. Schedule for left heart catheterization on Thursday with Dr. Reagan, patient's primary cheese cutter. Morphine and [place] for pain management. Aspirin, Lipitor. Heparin drip per pharmacy. IV Hydralazine for SBP >160. Lisinopril. Nitro SL. Additional plan as per the hospital course. Plan discussed with: Patient MASSIEL JESUS MD Jul 08, 2025 18:09
[2025-07-08 19:02] LABS: INR 1.04 (0.9-1.15); Prothrombin Time 11.0 sec (9.3-11.8)
[2025-07-08 19:14] LABS: Partial Thromboplastin Time 76.5 SEC (24.5-34.5)
--- NOTE | 2025-07-08 20:20 | CONS ---
Pharmacy Clinical Information: PTT=76.5 @ 1810, DECREASE RATE TO 700 UNITS/HR=7 ML/HR, NEXT PTT @ 0200. YAMILA WEIR Jul 08, 2025 20:20
[2025-07-08] MEDS: ATORVASTATIN 20 MG TAB PO SCH (21:52)
[2025-07-09] VITALS (8 sets, daily range): BP systolic 124–150; BP diastolic 72–99; PULSE 46–72; RESP 17–20; TEMP 96.1–97.9; O2SAT 97–99
[2025-07-09 02:28] LABS: Nucleated Red Blood Cells % 0.1 %
[2025-07-09 02:30] LABS: Hematocrit 40.5 % (41.0-53.0); Hemoglobin 13.5 g/dL (13.5-17.5); Mean Corpuscular Hemoglobin 34.5 pg (28.0-32.0); Mean Corpuscular Volume 103.5 fL (80.0-100.0)
[2025-07-09] MEDS ORDERED: ONDANSETRON ODT 4 MG TAB PO PRN (02:30)
[2025-07-09 02:45] LABS: INR 1.02 (0.9-1.15); Partial Thromboplastin Time 64.9 SEC (24.5-34.5); Prothrombin Time 10.8 sec (9.3-11.8)
--- NOTE | 2025-07-09 03:14 | CONS ---
Pharmacy Clinical Information: PTT=64.9 @ 0215, THERAPEUTIC, NO CHANGES X 1, NEXT PTT AT 0830 YAMILA WEIR Jul 09, 2025 03:14
[2025-07-09 03:23] LABS: Alanine Aminotransferase 21 U/L (7-40); Albumin 4.0 g/dL (3.2-4.8); Alkaline Phosphatase 70 U/L (46-116); Anion Gap 12 (5-15); BUN/Creatinine Ratio 21.6 (10.0-20.0); Blood Urea Nitrogen 16 mg/dL (9-23); Calcium 9.0 mg/dL (8.7-10.4); Carbon Dioxide 22 mmol/L (20-31); Potassium 4.1 mmol/L (3.5-5.1); Sodium 143 mmol/L (136-145); Total Protein 6.4 g/dL (5.7-8.2)
[2025-07-09] MEDS: ONDANSETRON HCL 4 MG/2 ML VIAL IV PRN (03:25)
[2025-07-09 03:27] LABS: Bilirubin, Total 1.8 mg/dL (0.2-1.0); Chloride 109 mmol/L (98-107)
[2025-07-09 03:35] LABS: Glucose 97 mg/dL (74-106)
[2025-07-09 11:06] LABS: INR 1.0 (0.9-1.15); Partial Thromboplastin Time 64.6 SEC (24.5-34.5); Prothrombin Time 10.6 sec (9.3-11.8)
--- NOTE | 2025-07-09 12:36 | DVHPN2 ---
Progress Note - Dictate Date Seen: Jul 09, 2025 Medical Necessity Reason Pt with a Central, PICC or Fol: No Subjective Patient continues to have some chest discomfort. vital signs Vital Sign Date Time Temp Pulse Resp B/P (MAP) Pulse Ox O2 Delivery O2 Flow Rate FiO2 07/09/25 10:21 136/88 07/09/25 09:00 96.1 58 20 98 96.1 07/08/25 20:00 Room Air* 0 21 Total Intake and Output 07/08/25 07/08/25 07/09/25 15:00 23:00 07:00 Intake Total 900 ml 240 ml Output Total 600 ml Balance 900 ml -360 ml medications Current Medications Medications Dose Ordered Sig/Debra Route Start Time Stop Time Status Last Admin Dose Admin Sodium Chloride 1,000 ml @ 60 mls/hr [id number] IV 07/07/25 14:15 07/08/25 08:00 60 MLS/HR Acetaminophen 325 mg Q4HP PRN PO 07/07/25 14:15 Acetaminophen/ Hydrocodone Bitart 1 tab Q4HP PRN PO 07/07/25 14:15 07/07/25 21:27 1 TAB Morphine Sulfate 2 mg Q4HPRN PRN IV 07/07/25 14:30 07/09/25 03:25 2 MG Nitroglycerin 0.4 mg Q5MINP PRN SL 07/07/25 14:15 Morphine Sulfate 2 mg Q30M PRN IV 07/07/25 14:30 Aspirin 81 mg DAILY PO 07/08/25 10:00 07/09/25 10:21 81 MG Hydralazine HCl 10 mg Q6HP PRN IV 07/07/25 14:30 Atorvastatin Calcium 40 mg HS PO 07/08/25 22:00 07/08/25 21:52 40 MG Lisinopril 5 mg DAILY PO 07/08/25 10:00 07/09/25 10:21 5 MG Heparin Sodium/ Dextrose 250 ml @ 7 mls/hr Q24H IV 07/08/25 19:30 07/08/25 19:30 7 MLS/HR Ondansetron HCl 4 mg Q4HP PRN PO 07/09/25 02:30 Cancel Ondansetron HCl 4 mg Q4HPRN PRN IV 07/09/25 02:30 07/09/25 03:25 4 MG objective General appearance: No acute distress Respiratory: Lungs clear to auscultation. No wheezing, crackles Cardiovascular: Regular rate and rhythm, no murmurs. No edema Abdomen: Soft, nondistended, nontender, bowel sounds present MSK: Normal range of motion. Neuro: Alert, no neurological deficits Psych: Appropriate mood and affect. laboratory and microbiology Laboratory Tests 07/09/25 02:15 Test 07/09/25 02:15 Range/Units Serum Glucose 97 74-106 mg/dL Assessment/Plan 1. NSTEMI Plan 2. Atrial Fibrillation 3. Hypertension 4. Hyperlipidemia plan: - Cardiology consulted. Plan for left heart cath on 07/10. - Continue heparin drip - TTE does not show any underlying CHF - Discontinue antibiotics as chest x-ray negative for infectious process -Flu and COVID negative -Lisinopril for HTN -Continue asa, statin -Cardiac diet -Daily CBC and BMP -Full Code Plan discussed with: Patient CON URBINA Jul 09, 2025 12:36
[2025-07-09 18:49] LABS: INR 1.0 (0.9-1.15); Partial Thromboplastin Time 52.7 SEC (24.5-34.5); Prothrombin Time 10.6 sec (9.3-11.8)
--- NOTE | 2025-07-09 20:06 | DVHPN2 ---
Progress Note - Dictate Date Seen: Jul 09, 2025 Medical Necessity Reason Pt with a Central, PICC or Fol: No Subjective Patient was seen and evaluated in follow up. Patient is complaining of intermittent chest discomfort and an upset stomach. Maintained on heparin drip. Telemetry reviewed. vital signs Vital Sign Date Time Temp Pulse Resp B/P (MAP) Pulse Ox O2 Delivery O2 Flow Rate FiO2 07/09/25 10:21 136/88 07/09/25 09:00 96.1 58 20 98 96.1 07/08/25 20:00 Room Air* 0 21 Total Intake and Output 07/08/25 07/08/25 07/09/25 15:00 23:00 07:00 Intake Total 900 ml 240 ml Output Total 600 ml Balance 900 ml -360 ml medications Current Medications Medications Dose Ordered Sig/Debra Route Start Time Stop Time Status Last Admin Dose Admin Sodium Chloride 1,000 ml @ 60 mls/hr [id number] IV 07/07/25 14:15 07/08/25 08:00 60 MLS/HR Acetaminophen 325 mg Q4HP PRN PO 07/07/25 14:15 Acetaminophen/ Hydrocodone Bitart 1 tab Q4HP PRN PO 07/07/25 14:15 07/07/25 21:27 1 TAB Morphine Sulfate 2 mg Q4HPRN PRN IV 07/07/25 14:30 07/09/25 03:25 2 MG Nitroglycerin 0.4 mg Q5MINP PRN SL 07/07/25 14:15 Morphine Sulfate 2 mg Q30M PRN IV 07/07/25 14:30 Aspirin 81 mg DAILY PO 07/08/25 10:00 07/09/25 10:21 81 MG Hydralazine HCl 10 mg Q6HP PRN IV 07/07/25 14:30 Atorvastatin Calcium 40 mg HS PO 07/08/25 22:00 07/08/25 21:52 40 MG Lisinopril 5 mg DAILY PO 07/08/25 10:00 07/09/25 10:21 5 MG Heparin Sodium/ Dextrose 250 ml @ 7 mls/hr Q24H IV 07/08/25 19:30 07/08/25 19:30 7 MLS/HR Ondansetron HCl 4 mg Q4HP PRN PO 07/09/25 02:30 Cancel Ondansetron HCl 4 mg Q4HPRN PRN IV 07/09/25 02:30 07/09/25 03:25 4 MG objective GENERAL: Alert and oriented x 3. No acute distress. EYES: PERRL, EOMI. Anicteric. HENT: Moist mucous membranes. LUNGS: Clear to auscultation bilaterally. CARDIOVASCULAR: Regular rate and rhythm. ABDOMEN: Soft, nontender and nondistended. EXTREMITIES: No edema. NEUROLOGIC: No focal neurological deficits. SKIN: Warm, dry. laboratory and microbiology Laboratory Tests 07/09/25 02:15 Test 07/09/25 02:15 Range/Units Serum Glucose 97 74-106 mg/dL Problem List Acute chest pain, NSTEMI likely type 2. Sinus bradycardia, symptomatic. Hypertension. ? Atrial fibrillation on Eliquis. Assessment/Plan Continued all current supportive medical care. Schedule for left heart catheterization on Thursday with Dr. Reagan, patient's primary transmission rebuilder. Morphine and [place] for pain management. Aspirin, Lipitor. Heparin drip per pharmacy. IV Hydralazine for SBP >160. Lisinopril. Nitro SL. Additional plan as per the hospital course. Plan discussed with: Patient MASSIEL JESUS MD Jul 09, 2025 14:48
[2025-07-10] VITALS (9 sets, daily range): BP systolic 119–180; BP diastolic 75–105; PULSE 47–103; RESP 16–18; TEMP 97.1–98.8; O2SAT 96–99
[2025-07-10 07:18] LABS: Hemoglobin 13.1 g/dL (13.5-17.5); Mean Corpuscular Volume 102.8 fL (80.0-100.0); Nucleated Red Blood Cells % 0.1 %
[2025-07-10 07:20] LABS: Hematocrit 38.8 % (41.0-53.0); Mean Corpuscular Hemoglobin 34.8 pg (28.0-32.0)
[2025-07-10 07:30] LABS: INR 1.84 (0.9-1.15); Partial Thromboplastin Time 58.1 SEC (24.5-34.5); Prothrombin Time 18.4 sec (9.3-11.8)
--- NOTE | 2025-07-10 09:19 | CONS ---
Pharmacy Clinical Information: HEPARIN DRIP, ACS PROTOCOL @0625 APTT 58.1 - NO BOLUS / NO CHANGE 3 CONSECUTIVE APTT THERAPEUTIC => APTT EVERY 24 HRS NEXT APTT DRAW SCHEDULED @0500 PER RX PROTOCOL CONFIRMED AND READ BACK WITH SALLY JAIMES,[employer] RESIDENT Jul 10, 2025 09:19
--- NOTE | 2025-07-10 14:43 | DVHPN2 ---
Progress Note - Dictate Date Seen: Jul 10, 2025 Medical Necessity Reason Pt with a Central, PICC or Fol: No Subjective Patient continues to have some chest discomfort. Pending left heart cath. vital signs Vital Sign Date Time Temp Pulse Resp B/P (MAP) Pulse Ox O2 Delivery O2 Flow Rate FiO2 07/10/25 09:33 151/89 07/10/25 08:00 Room Air* 0 21 07/10/25 08:00 47 07/10/25 05:00 98.2 16 96 98.2 Total Intake and Output 07/09/25 07/09/25 07/10/25 15:00 23:00 07:00 Intake Total 400 ml 400 ml Output Total 200 ml Balance 200 ml 400 ml medications Current Medications Medications Dose Ordered Sig/Debra Route Start Time Stop Time Status Last Admin Dose Admin Sodium Chloride 1,000 ml @ 60 mls/hr [id number] IV 07/07/25 14:15 07/09/25 16:15 60 MLS/HR Acetaminophen 325 mg Q4HP PRN PO 07/07/25 14:15 Acetaminophen/ Hydrocodone Bitart 1 tab Q4HP PRN PO 07/07/25 14:15 07/07/25 21:27 1 TAB Morphine Sulfate 2 mg Q4HPRN PRN IV 07/07/25 14:30 07/09/25 19:05 2 MG Nitroglycerin 0.4 mg Q5MINP PRN SL 07/07/25 14:15 Morphine Sulfate 2 mg Q30M PRN IV 07/07/25 14:30 Aspirin 81 mg DAILY PO 07/08/25 10:00 07/09/25 10:21 81 MG Hydralazine HCl 10 mg Q6HP PRN IV 07/07/25 14:30 Atorvastatin Calcium 40 mg HS PO 07/08/25 22:00 07/09/25 21:25 40 MG Lisinopril 5 mg DAILY PO 07/08/25 10:00 07/10/25 09:33 5 MG Heparin Sodium/ Dextrose 250 ml @ 7 mls/hr Q24H IV 07/08/25 19:30 07/10/25 04:52 7 MLS/HR Ondansetron HCl 4 mg Q4HP PRN PO 07/09/25 02:30 Cancel Ondansetron HCl 4 mg Q4HPRN PRN IV 07/09/25 02:30 07/09/25 03:25 4 MG objective General appearance: No acute distress Respiratory: Lungs clear to auscultation. No wheezing, crackles Cardiovascular: Regular rate and rhythm, no murmurs. No edema Abdomen: Soft, nondistended, nontender, bowel sounds present MSK: Normal range of motion. Neuro: Alert, no neurological deficits Psych: Appropriate mood and affect. laboratory and microbiology Laboratory Tests 07/10/25 06:25 07/09/25 02:15 Test 07/09/25 02:15 Range/Units Serum Glucose 97 74-106 mg/dL Assessment/Plan 1. NSTEMI Plan 2. Atrial Fibrillation 3. Hypertension 4. Hyperlipidemia plan: - Cardiology consulted. Plan for left heart cath on 07/10. Dr. Reagan noted to be out of town. Pending follow-up with Dr. Hicks. - Continue heparin drip - TTE does not show any underlying CHF - Discontinue antibiotics as chest x-ray negative for infectious process -Flu and COVID negative -Lisinopril for HTN -Continue asa, statin -Cardiac diet -Daily CBC and BMP -Full Code Plan discussed with: Patient CON URBINA Jul 10, 2025 14:43
[2025-07-10] MEDS: VERAPAMIL 2.5MG/ML INJ 2ML VIAL IV ONE (18:41)
[2025-07-10] MEDS: HEPARIN SODIUM (PORCINE) 5000 UNITS/ML 1ML VIAL ONE (18:41)
[2025-07-10] MEDS: fentaNYL CITRATE 100 MCG/2 ML VL ONE (18:41)
[2025-07-10] MEDS: HEPARIN IN NS 1000Units/500mL 1,500 ML ONE (18:42)
[2025-07-10] MEDS: MIDAZOLAM HCL 2MG/2ML 2ml VIAL (1mg/ml) ONE (18:42)
[2025-07-10] MEDS: LIDOCAINE 2%HCL (LOCAL ANESTH.) INJ 20ML MDV ONE (18:43)
--- NOTE | 2025-07-10 19:59 | ECG ---
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
--- NOTE | 2025-07-10 20:22 | DVHPN2 ---
Progress Note - Dictate Date Seen: Jul 10, 2025 Medical Necessity Reason Pt with a Central, PICC or Fol: No Subjective Patient was seen and evaluated in follow up. No overnight events. Patient continues to have some chest discomfort. Patient is pending left heart cath. Telemetry reviewed. vital signs Vital Sign Date Time Temp Pulse Resp B/P (MAP) Pulse Ox O2 Delivery O2 Flow Rate FiO2 07/10/25 19:49 54 16 127/78 (94) 96 07/10/25 17:00 98.8 98.8 07/10/25 08:00 Room Air* 0 21 Total Intake and Output 07/09/25 07/09/25 07/10/25 15:00 23:00 07:00 Intake Total 400 ml 400 ml Output Total 200 ml Balance 200 ml 400 ml medications Current Medications Medications Dose Ordered Sig/Debra Route Start Time Stop Time Status Last Admin Dose Admin Sodium Chloride 1,000 ml @ 60 mls/hr [id number] IV 07/07/25 14:15 07/09/25 16:15 60 MLS/HR Acetaminophen 325 mg Q4HP PRN PO 07/07/25 14:15 Acetaminophen/ Hydrocodone Bitart 1 tab Q4HP PRN PO 07/07/25 14:15 07/07/25 21:27 1 TAB Morphine Sulfate 2 mg Q4HPRN PRN IV 07/07/25 14:30 07/09/25 19:05 2 MG Nitroglycerin 0.4 mg Q5MINP PRN SL 07/07/25 14:15 Morphine Sulfate 2 mg Q30M PRN IV 07/07/25 14:30 Aspirin 81 mg DAILY PO 07/08/25 10:00 07/09/25 10:21 81 MG Hydralazine HCl 10 mg Q6HP PRN IV 07/07/25 14:30 Atorvastatin Calcium 40 mg HS PO 07/08/25 22:00 07/09/25 21:25 40 MG Lisinopril 5 mg DAILY PO 07/08/25 10:00 07/10/25 09:33 5 MG Ondansetron HCl 4 mg Q4HP PRN PO 07/09/25 02:30 Cancel Ondansetron HCl 4 mg Q4HPRN PRN IV 07/09/25 02:30 07/09/25 03:25 4 MG objective GENERAL: Alert and oriented x 3. No acute distress. EYES: PERRL, EOMI. Anicteric. HENT: Moist mucous membranes. LUNGS: Clear to auscultation bilaterally. CARDIOVASCULAR: Regular rate and rhythm. ABDOMEN: Soft, nontender and nondistended. EXTREMITIES: No edema. NEUROLOGIC: No focal neurological deficits. SKIN: Warm, dry. laboratory and microbiology Laboratory Tests 07/10/25 06:25 07/09/25 02:15 Test 07/09/25 02:15 Range/Units Serum Glucose 97 74-106 mg/dL Problem List Acute chest pain, NSTEMI likely type 2. Sinus bradycardia, symptomatic. Hypertension. ? Atrial fibrillation on Eliquis. Assessment/Plan Continued all current supportive medical care. Schedule for left heart catheterization. Morphine and [place] for pain management. Aspirin, Lipitor. Heparin drip per pharmacy. IV Hydralazine for SBP >160. Lisinopril. Nitro SL. Additional plan as per the hospital course. Plan discussed with: Patient MASSIEL JESUS MD Jul 10, 2025 20:22
--- NOTE | 2025-07-10 20:57 | DVHOP ---
DATE OF SURGERY: 07/10/2025 TECHNIQUE PERFORMED: 1. Emergency case. 2. Ultrasound of the right radial artery. 3. Insertion of a 6-[place] arterial line of the right radial artery. 4. Left heart catheterization. 5. Left ventriculogram. 6. [place] selective left and right coronary artery angiography. Assisted by OR staff, Scott Mercedes Francisco, and Wes. INDICATIONS: Kbh-LD-wseikggyg myocardial infarction. Troponin high. DESCRIPTION OF PROCEDURE: Risks and benefits discussed. 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 The right radial area thoroughly cleaned with soap and water and lidocaine was given. A 6-[place] JL4. The patient refused the cocktail of 2000 units of heparin, 100 mcg of nitroglycerin, 2.5 mg of verapamil. TIG catheter 5-[place] 4.0 was passed and the left coronary artery angiography was done with the help of the similar catheter. The right coronary artery angiography was done with the help of the similar catheter. Left heart cath and left ventriculogram was done. Procedure completed. No complications. IMPRESSION: 1. Normal left main. 2. Left artery widely open, normal. 3. Circumflex artery is also widely open and normal. 4. Right coronary artery, large luminal artery, normal. 5. Ejection fraction of the left ventricle is 65%. CONCLUSION: 1. No evidence of any occlusive coronary artery disease. 2. Ejection fraction 65%. Stephan Hicks MD MP/LAURA TID: [id number] RECEIPT: [id number] [facility]
[2025-07-11] VITALS (7 sets, daily range): BP systolic 110–147; BP diastolic 68–88; PULSE 51–72; RESP 16–18; TEMP 36.6; O2SAT 96–98
[2025-07-11 07:37] LABS: Hemoglobin 13.7 g/dL (13.5-17.5)
[2025-07-11 07:39] LABS: Hematocrit 40.2 % (41.0-53.0); Mean Corpuscular Hemoglobin 35.1 pg (28.0-32.0); Mean Corpuscular Volume 102.9 fL (80.0-100.0); Nucleated Red Blood Cells % 0.1 %
[2025-07-11 11:14] LABS: Alanine Aminotransferase 28 U/L (7-40); Alkaline Phosphatase 74 U/L (46-116); Anion Gap 8 (5-15); Calcium 9.8 mg/dL (8.7-10.4); Carbon Dioxide 29 mmol/L (20-31); Glucose 97 mg/dL (74-106); Potassium 4.3 mmol/L (3.5-5.1); Sodium 144 mmol/L (136-145)
[2025-07-11 11:15] LABS: Albumin 4.6 g/dL (3.2-4.8); BUN/Creatinine Ratio 10.3 (10.0-20.0); Blood Urea Nitrogen 12 mg/dL (9-23); Total Protein 7.3 g/dL (5.7-8.2)
[2025-07-11 11:16] LABS: Bilirubin, Total 2.1 mg/dL (0.2-1.0); Chloride 107 mmol/L (98-107)
[2025-07-11] MEDS ORDERED: ASPI-543 PO (13:43)
[2025-07-11] MEDS ORDERED: ATOR20TA50 PO (13:43)
[2025-07-11] MEDS ORDERED: AML5T PO (13:43)
[2025-07-11] MEDS ORDERED: HYDR-4902 PO (13:43)
[2025-07-11] MEDS ORDERED: NALO4SPR2 (13:44)
[2025-07-11] MEDS: SODIUM CHLORIDE 0.9% 1,000 ML IV ONE (13:45)
[2025-07-11] MEDS ORDERED: PANT40TA2 PO (13:45)
[2025-07-11] MEDS: FAMOTIDINE 20 MG TAB PO ONE (13:52)
--- NOTE | 2025-07-11 17:35 | DVHDS2 ---
Discharge Summary Date of Admission Jul 07, 2025 at 14:15 Date of Discharge: Jul 11, 2025 Labs/Diagnostic Data: Laboratory Results Test 07/11/25 07:00 07/10/25 06:25 07/07/25 14:58 07/07/25 14:00 White Blood Count 3.8 10^3/uL (4.4-10.8) Red Blood Count 3.91 10^6/uL (4.5-5.90) Hemoglobin 13.7 g/dL (13.5-17.5) Hematocrit 40.2 % (41.0-53.0) Mean Corpuscular Volume 102.9 fL (80.0-100.0) Mean Corpuscular Hemoglobin 35.1 pg (28.0-32.0) Mean Corpuscular Hemoglobin Concent 34.1 g/dL (32.0-36.0) Red Cell Distribution Width 13.6 % (11.8-14.3) Platelet Count 182 10^3/uL (140-450) Mean Platelet Volume 7.8 fL (6.9-10.8) Neutrophils (%) (Auto) 45.0 % (37.0-80.0) Lymphocytes (%) (Auto) 41.6 % (10.0-50.0) Monocytes (%) (Auto) 8.8 % (0.0-12.0) Eosinophils (%) (Auto) 3.4 % (0.0-7.0) Basophils (%) (Auto) 1.2 % (0.0-2.0) Neutrophils # (Auto) 1.7 10 ^3/uL (1.6-8.6) Lymphocytes # (Auto) 1.6 10 ^3/uL (0.4-5.4) Monocytes # (Auto) 0.3 10 ^3/uL (0-1.3) Eosinophils # (Auto) 0.1 10 ^3/uL (0-0.8) Basophils # (Auto) 0 10 ^3/uL (0-0.2) Nucleated Red Blood Cells 0.1 % Sodium Level 144 mmol/L (136-145) Potassium Level 4.3 mmol/L (3.5-5.1) Chloride Level 107 mmol/L (98-107) Carbon Dioxide Level 29 mmol/L (20-31) Anion Gap 8 (5-15) Blood Urea Nitrogen 12 mg/dL (9-23) Creatinine 1.17 mg/dL (0.700-1.30) Glomerular Filtration Rate Calc 67 mL/min (>90) BUN/Creatinine Ratio 10.3 (10.0-20.0) Serum Glucose 97 mg/dL (74-106) Calcium Level 9.8 mg/dL (8.7-10.4) Total Bilirubin 2.1 mg/dL (0.2-1.0) Aspartate Amino Transferase (AST) 29 U/L (13-40) Alanine Aminotransferase (ALT) 28 U/L (7-40) Alkaline Phosphatase 74 U/L (46-116) Total Protein 7.3 g/dL (5.7-8.2) Albumin 4.6 g/dL (3.2-4.8) Prothrombin Time 18.4 sec (9.3-11.8) Prothrombin Time INR 1.84 (0.9-1.15) Activated Partial Thromboplast Time 58.1 SEC (24.5-34.5) Troponin I High Sensitivity 193 ng/L (</=54) Urine Color Light-yellow (Yellow) Urine Clarity Clear (Clear) Urine pH 5.5 (5.0-9.0) Urine Specific [place] 1.024 (1.001-1.035) Urine Protein Negative (Negative) Urine Ketones Negative (Negative) Urine Blood Negative /uL (Negative) Urine Nitrite Negative (Negative) Urine Bilirubin Negative (Negative) Urine Urobilinogen Normal mg/dL (Negative) Urine Leukocyte Esterase Negative /uL (Negative) Urine RBC 1 /hpf (0 - 3) Urine Microscopic WBC 1 /HPF (0-3) Urine Squamous Epithelial Cells Few /hpf (<5) Urine Bacteria None seen /hpf (None Seen) Urine Mucus Few (None Seen) Urine Glucose Normal mg/dL (Normal) Test 07/07/25 12:51 Influenza Type A Antigen Negative (Negative) Influenza Type B Antigen Negative (Negative) SARS-CoV-2 Antigen (Rapid) Negative (NEGATIVE) Other Laboratory Tests 07/11/25 07:00 Brief Hx & Hospital Course: Patient is 69-year-old male with past medical history of atrial fibrillation on Eliquis, hypertension, hyperlipidemia who presents with complaints of chest pain. Patient initially presented to the urgent care with complaints of left- sided chest pain rating to his left arm. Troponin was initially elevated. Patient arrived to the ER with troponin noted to be 205 and downtrended to 194 and then 193. Patient was admitted for further cardiac evaluation. He sees Dr. Reagan outpatient. Patient underwent left heart cath which was negative for any CAD. TTE was done which showed LVEF of 65% with normal RV function. Patient continued to have some complaints of chest discomfort. He notes that it is worse when he lays flat. His presentation appears consistent with GERD. He was started on famotidine and discharged on Protonix. Patient is to take amlodipine for his blood pressure. He is to continue aspirin. He was given a short course of [place] for his chronic knee pain. He will be referred to follow-up with pain management outpatient. Patient was in agreement with the plan. He is medically stable for discharge. [facility] case management to help arrange follow-up appointments. 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 Follow up with PCP. Medications: Protonix added for GERD. Scheduled Amlodipine Besylate (Norvasc Tablet), 1 TAB PO DAILY Aspirin (Aspir-Low), 81 MG PO DAILY Atorvastatin Calcium (Atorvastatin Calcium), 40 MG PO HS Naloxone HCl (Narcan), 4 MG NA ONCE Pantoprazole Sodium Sesquihydr (Protonix), 40 MG PO DAILY Scheduled PRN Hydrocodone-Acetaminophen (Hydrocodone Bitartrate/AC 5-325 mg), 1 TAB PO Q6HP PRN Discontinued Medications Hydrocortisone Acetate (Anusol-Hc), 1 SUPP SD BID Tramadol Hcl (Ultram), 1 TAB PO Q6HR Discharge Statement: "Patient was advised to return to the ER or call 911 if any headaches, dizziness, shortness of breath, chest pain, abdominal pain, bleeding, fevers, or worsening of medical condition. Patient was counseled about treatment plan, medications, possible side effects, patientverbalized understanding. All questions were answered to the best of my ability. This discharge took greater then 30 minutes in planning, reviewing documentation, counseling the patient, and discussing with other team members." ASSESSMENT ASSESSMENT Assessment GERD CON URBINA DO Jul 11, 2025 17:35
--- NOTE | 2025-07-12 00:11 | DVHPN2 ---
Progress Note - Dictate Date Seen: Jul 11, 2025 Medical Necessity Reason Pt with a Central, PICC or Fol: No Subjective Patient was seen and evaluated in follow up. Patient underwent left heart catheterization, [place] selective left and right coronary artery angiography. There is no evidence of any occlusive coronary artery disease. Ejection fraction 65%. Telemetry reviewed. vital signs Vital Sign Date Time Temp Pulse Resp B/P (MAP) Pulse Ox O2 Delivery O2 Flow Rate FiO2 07/11/25 12:42 97.9 60 18 138/88 (105) 98 97.9 07/11/25 08:00 Room Air* 0 21 Total Intake and Output 07/10/25 07/10/25 07/11/25 15:00 23:00 07:00 Intake Total 300 ml Balance 300 ml medications Current Medications Medications Dose Ordered Sig/Debra Route Start Time Stop Time Status Last Admin Dose Admin Sodium Chloride 1,000 ml @ 60 mls/hr [id number] IV 07/07/25 14:15 07/09/25 16:15 60 MLS/HR Acetaminophen 325 mg Q4HP PRN PO 07/07/25 14:15 Acetaminophen/ Hydrocodone Bitart 1 tab Q4HP PRN PO 07/07/25 14:15 07/11/25 13:52 1 TAB Morphine Sulfate 2 mg Q4HPRN PRN IV 07/07/25 14:30 07/09/25 19:05 2 MG Nitroglycerin 0.4 mg Q5MINP PRN SL 07/07/25 14:15 Morphine Sulfate 2 mg Q30M PRN IV 07/07/25 14:30 Aspirin 81 mg DAILY PO 07/08/25 10:00 07/11/25 09:51 81 MG Hydralazine HCl 10 mg Q6HP PRN IV 07/07/25 14:30 Atorvastatin Calcium 40 mg HS PO 07/08/25 22:00 07/10/25 21:01 40 MG Lisinopril 5 mg DAILY PO 07/08/25 10:00 07/11/25 09:52 5 MG Ondansetron HCl 4 mg Q4HP PRN PO 07/09/25 02:30 Cancel Ondansetron HCl 4 mg Q4HPRN PRN IV 07/09/25 02:30 07/09/25 03:25 4 MG objective GENERAL: Alert and oriented x 3. No acute distress. EYES: PERRL, EOMI. Anicteric. HENT: Moist mucous membranes. LUNGS: Clear to auscultation bilaterally. CARDIOVASCULAR: Regular rate and rhythm. ABDOMEN: Soft, nontender and nondistended. EXTREMITIES: No edema. NEUROLOGIC: No focal neurological deficits. SKIN: Warm, dry. laboratory and microbiology Laboratory Tests 07/11/25 07:00 Test 07/11/25 07:00 Range/Units Serum Glucose 97 74-106 mg/dL Problem List Acute chest pain, NSTEMI likely type 2. Sinus bradycardia, symptomatic. Hypertension. ? Atrial fibrillation on Eliquis. Assessment/Plan Continued all current supportive medical care. Morphine and [place] for pain management. Aspirin, Lipitor. Heparin drip per pharmacy. IV Hydralazine for SBP >160. Lisinopril. Nitro SL. Additional plan as per the hospital course. Plan discussed with: Patient MASSIEL JESUS MD Jul 11, 2025 14:36
== END 2025-07-11 17:45 | disposition home or self-care (01) | DRG 282 ==
LOC: EDBD 11:46 → EDUNIT# 11:46 → ER 11:46 → OVERFLOW 14:15 → TELE-WESTW 17:38
PROVIDERS: ADMIT Student in an Organized Health Care Education/Training Program; ATTEND Student in an Organized Health Care Education/Training Program
PROC: 4A023N7 Measurement of Cardiac Sampling and Pressure, Left Heart, Percutaneous Approach (ICD-10-PCS; principal; 2025-07-10)
PROC: B211YZZ Fluoroscopy of Multiple Coronary Arteries using Other Contrast (ICD-10-PCS; 2025-07-10)
PROC: B215YZZ Fluoroscopy of Left Heart using Other Contrast (ICD-10-PCS; 2025-07-10)
DX: I21.4 Non-ST elevation (NSTEMI) myocardial infarction (principal); E78.5 Hyperlipidemia, unspecified; Z79.01 Long term (current) use of anticoagulants; I10 Essential (primary) hypertension; I48.91 Unspecified atrial fibrillation; Z20.822 Contact with and (suspected) exposure to COVID-19; K21.9 Gastro-esophageal reflux disease without esophagitis; J98.4 Other disorders of lung; G89.29 Other chronic pain; Z79.899 Other long term (current) drug therapy; Z79.82 Long term (current) use of aspirin; Z87.442 Personal history of urinary calculi
CPT/HCPCS: 36415; 71045; 80048; 80053; 81001; 84484; 85025; 85610; 85730; 87426; 87804; 93005; 93306; 93458; 99152; 99291; 99292; G0378; J2250; J2405